=== PATIENT | female | born 1950 | race Caucasian/White ===

== ENCOUNTER 2017-11-23 10:12 | Emergency (ER) | payer OTHER ==
[~2017-11-23] VITALS: Ht 152.4 cm; Wt 71.7 kg
[~2017-11-23 10:12] MED LIST: CARVEDILOL6.25 MG PO; CIPRO250 MG PO; CIPROFLOXACIN500 MG PO; FLUCONAZOLE100 MG PO; GABAPENTIN TAB600 MG PO; HUMALOG100 U/ML SC; HYDROCHLOROTH12.5 MG PO; HYZAAR; LANTUS100 U/ML; LANTUS100 U/ML SC; LISINOPRIL20 MG PO; LOMOTIL 0.025 M1 TA1 PO; LORATADINE10 M1 PO; LYRICA75 MG PO; MEDROL DOSEPAK4 MG PO; METFORMIN HCL500 M1 PO; METRONIDAZOLE500 M1 PO; Nystatin Cream15 GM T; SIMVASTATIN80 MG PO; TRADJENTA5 MG PO; TYLENOL W/ CODE1 TAB PO; VITAMIN D2000 IU PO
[2017-11-23 10:41] LABS: BASO # 0.1 10*3/uL (0.0-0.1); BASO % 0.8 % (0.0-1.0); EOS # 0.3 10*3/uL (0.0-0.4); EOS % 4.5 % (1.0-4.0); HEMATOCRIT 42.7 % (37.0-47.0); HEMOGLOBIN 14.3 g/dl (12.0-16.0); LYMPH # 1.9 10*3/uL (1.3-4.4); LYMPH % 25.5 % (27.0-41.0); MEAN CELL VOLUME 90.7 fl (81.0-99.0); MEAN CORPUSCULAR HGB 30.4 pg (27.0-31.0); MEAN CORPUSCULAR HGB CONC 33.5 g/dl (33.0-37.0); MEAN PLATELET VOLUME 10.6 fl (9.6-12.3); MONO # 0.9 10*3/uL (0.1-1.0); MONO % 12.3 % (3.0-9.0); NEUT # 4.2 10*3/uL (2.3-7.9); NEUT % 56.8 % (47.0-73.0); PLATELET COUNT AUTOMATED 249 10*3/uL (130-400); RED BLOOD COUNT 4.71 10*6/uL (4.10-5.10); RED CELL DISTRI WIDTH 12.6 % (0-14.5); WHITE BLOOD COUNT 7.5 10*3/uL (4.8-10.8)
[2017-11-23 10:57] LABS: ALKALINE PHOSPHATASE 87 U/L (45-117); BUN 15 mg/dl (7-24); CHLORIDE 103 mmol/L (98-107); CREATININE 1.05 mg/dL (0.55-1.02); SGOT/AST 13 IU/L (3-35); SGPT/ALT 15 U/L (12-78); SODIUM 137 mmol/L (136-145); TOTAL PROTEIN 7.6 gm/dL (6.4-8.2)
[2017-11-23] MEDS ORDERED: VIBRAMYCIN100 MG PO (11:29)
[2017-11-23] MEDS ORDERED: TESSALON PERLE100 M1 PO (11:29)
[2017-11-23] MEDS ORDERED: ZITHROMAX250 MG PO (11:53)
== END 2017-11-23 11:34 | disposition home or self-care (01) ==
LOC: ED 10:12
PROVIDERS: Emergency Medicine
DX: J40 Bronchitis, not specified as acute or chronic (principal); E11.9 Type 2 diabetes mellitus without complications; I10 Essential (primary) hypertension; Z79.899 Other long term (current) drug therapy; Z91.040 Latex allergy status; Z88.3 Allergy status to other anti-infective agents; Z79.4 Long term (current) use of insulin

== ENCOUNTER 2017-12-03 16:13 | Emergency (ER) | payer OTHER ==
[~2017-12-03] VITALS: Ht 152.4 cm; Wt 70.8 kg
[~2017-12-03 16:13] MED LIST changes: +TESSALON PERLE100 M1 PO; +VIBRAMYCIN100 MG PO; +ZITHROMAX250 MG PO
[2017-12-03 17:15] LABS: BASO % 0.5 % (0.0-1.0); EOS # 0.2 10*3/uL (0.0-0.4); EOS % 2.4 % (1.0-4.0); HEMATOCRIT 41.2 % (37.0-47.0); HEMOGLOBIN 13.4 g/dl (12.0-16.0); LYMPH # 2.3 10*3/uL (1.3-4.4); LYMPH % 29.8 % (27.0-41.0); MEAN CELL VOLUME 90.7 fl (81.0-99.0); MEAN CORPUSCULAR HGB 29.5 pg (27.0-31.0); MEAN CORPUSCULAR HGB CONC 32.5 g/dl (33.0-37.0); MEAN PLATELET VOLUME 10.4 fl (9.6-12.3); MONO # 0.5 10*3/uL (0.1-1.0); MONO % 6.1 % (3.0-9.0); NEUT # 4.6 10*3/uL (2.3-7.9); NEUT % 61.1 % (47.0-73.0); PLATELET COUNT AUTOMATED 328 10*3/uL (130-400); RED BLOOD COUNT 4.54 10*6/uL (4.10-5.10); RED CELL DISTRI WIDTH 12.6 % (0-14.5); WHITE BLOOD COUNT 7.6 10*3/uL (4.8-10.8)
[2017-12-03 17:29] LABS: ALKALINE PHOSPHATASE 72 U/L (45-117); BUN 14 mg/dl (7-24); CHLORIDE 103 mmol/L (98-107); CREATININE 1.05 mg/dL (0.55-1.02); POTASSIUM 4.2 mmol/L (3.5-5.1); SGOT/AST 13 IU/L (3-35); SGPT/ALT 15 U/L (12-78); SODIUM 138 mmol/L (136-145); TOTAL PROTEIN 7.5 gm/dL (6.4-8.2)
[2017-12-03] MEDS ORDERED: PREDNISONE20 M1 PO (18:29)
[2017-12-03] MEDS ORDERED: LEVAQUIN750 M1 PO (18:29)
== END 2017-12-03 18:50 | disposition home or self-care (01) ==
LOC: ED 16:13
PROVIDERS: Nurse Practitioner
DX: J40 Bronchitis, not specified as acute or chronic (principal); E11.9 Type 2 diabetes mellitus without complications; Z91.040 Latex allergy status; Z88.3 Allergy status to other anti-infective agents; Z79.899 Other long term (current) drug therapy; Z79.4 Long term (current) use of insulin

== ENCOUNTER 2017-12-25 16:24 | Emergency (ER) | payer OTHER ==
[~2017-12-25] VITALS: Ht 152.4 cm; Wt 68.0 kg
[~2017-12-25 16:24] MED LIST changes: +LEVAQUIN750 M1 PO; +PREDNISONE20 M1 PO
== END 2017-12-25 19:25 | disposition home or self-care (01) ==
LOC: ED 16:24
DX: S00.03XA Contusion of scalp, initial encounter (principal); E11.9 Type 2 diabetes mellitus without complications; I10 Essential (primary) hypertension; Z88.1 Allergy status to other antibiotic agents; Z91.040 Latex allergy status; W22.8XXA Striking against or struck by other objects, initial encounter; Y93.89 Activity, other specified; Y92.89 Other specified places as the place of occurrence of the external cause; Y99.8 Other external cause status

== ENCOUNTER 2018-01-30 15:08 | Emergency (ER) | payer MEDICARE ==
[~2018-01-30] VITALS: Ht 152.4 cm; Wt 74.8 kg
[2018-01-30] MEDS ORDERED: TRESIBA FL200 UNIT/1 SQ (15:16)
[2018-01-30] MEDS ORDERED: DICLOFENAC SOD100 G1 T (15:16)
[2018-01-30] MEDS ORDERED: TYLENOL W/CODEI1 TA4 PO (17:43)
[2018-01-30] MEDS ORDERED: Motrin,Rufen800 MG PO (17:43)
== END 2018-01-30 17:55 | disposition home or self-care (01) ==
LOC: ED 15:08
DX: S22.42XA Multiple fractures of ribs, left side, initial encounter for closed fracture (principal); I10 Essential (primary) hypertension; E11.40 Type 2 diabetes mellitus with diabetic neuropathy, unspecified; Z88.1 Allergy status to other antibiotic agents; Z91.040 Latex allergy status; Z79.899 Other long term (current) drug therapy; Z79.4 Long term (current) use of insulin; W18.30XA Fall on same level, unspecified, initial encounter; Y93.89 Activity, other specified; Y92.89 Other specified places as the place of occurrence of the external cause; Y99.8 Other external cause status

== ENCOUNTER → 2018-02-27 | Outpatient (CLI) | payer MEDICARE ==
[~2018-02-27] MED LIST changes: +DICLOFENAC SOD100 G1 T; +Motrin,Rufen800 MG PO; +TRESIBA FL200 UNIT/1 SQ; +TYLENOL W/CODEI1 TA4 PO
[2018-02-27 11:53] LABS: BASO # 0.1 10*3/uL (0.0-0.1); BASO % 0.9 % (0.0-1.0); EOS # 0.3 10*3/uL (0.0-0.4); EOS % 3.8 % (1.0-4.0); HEMATOCRIT 43.7 % (37.0-47.0); HEMOGLOBIN 14.4 g/dl (12.0-16.0); LYMPH # 2.1 10*3/uL (1.3-4.4); LYMPH % 30.2 % (27.0-41.0); MEAN PLATELET VOLUME 10.5 fl (9.6-12.3); MONO # 0.5 10*3/uL (0.1-1.0); MONO % 7.1 % (3.0-9.0); NEUT % 57.7 % (47.0-73.0); PLATELET COUNT AUTOMATED 325 10*3/uL (130-400); RED CELL DISTRI WIDTH 12.6 % (0-14.5); WHITE BLOOD COUNT 6.9 10*3/uL (4.8-10.8)
[2018-02-27 12:23] LABS: ALBUMIN 3.3 gm/dl (3.1-4.5); CREATININE 1.1 mg/dL (0.55-1.02); POTASSIUM 4.2 mmol/L (3.5-5.1); TOTAL PROTEIN 7.8 gm/dL (6.4-8.2)
[2018-02-27 12:30] LABS: THYROID STIM HORMONE (HS) 1.28 uIU/ml (0.358-4.75)
[2018-02-27 16:32] LABS: BILIRUBIN NEGATIVE (NEGATIVE); BLOOD TRACE-LYSED (NEGATIVE); CLARITY CLEAR (CLEAR); COLOR YELLOW (YELLOW); GLUCOSE 3+ (NEGATIVE); KETONE NEGATIVE (NEGATIVE); LEUKO ESTERASE NEGATIVE (NEGATIVE); NITRITE NEGATIVE (NEGATIVE); PH 5.5 (5.0-9.0); UROBILINOGEN 0.2 E.U./dl (0.2-1.0)
[2018-02-27 16:45] LABS: BACTERIA 2+
[2018-02-28 08:08] LABS: CREATININE,URINE 43.1 mg/dL (Not Estab.); MICRO ALBUMIN/CRE RATIO 463.8 (0.0-30.0)
== END | disposition home or self-care (01) ==
LOC: LAB 11:20
PROVIDERS: Family Medicine
DX: I10 Essential (primary) hypertension (principal); E11.65 Type 2 diabetes mellitus with hyperglycemia; E78.5 Hyperlipidemia, unspecified; G58.9 Mononeuropathy, unspecified

== ENCOUNTER → 2018-04-22 | Outpatient (CLI) | payer MEDICARE ==
[~2018-04-22] MED LIST changes: +BISACODYL LAXATI5 MG PO; +ENOXAPARIN30 MG/0.2 SC; +GOOD SENSE400 MG/5 M PO; +Humalog SQ; +NATURE'S BLEND F1 MG PO; +TYLENOL WITH C1 EACH PO; +VITAMIN D-32000 UNIT PO
== END | disposition home or self-care (01) ==
LOC: ORTHO 04:36
DX: Z47.89 Encounter for other orthopedic aftercare (principal); S72.002D Fracture of unspecified part of neck of left femur, subsequent encounter for closed fracture with routine healing; X58.XXXD Exposure to other specified factors, subsequent encounter

== ENCOUNTER 2018-04-28 11:58 | Inpatient (IN) | payer MEDICARE ==
[~2018-04-28] VITALS: Ht 152.4 cm
--- NOTE | ~2018-04-28 | EKG ---
[place], [place] ELECTROCARDIOGRAM REPORT NAME: NATHEN BAILEY UNIT #: [id number] ROOM: 411 DOCTOR: LUPE DRAFT REPORT BIRTHDATE: [birth year] [facility] Test Date: 2018-04-28 Test Time: 12:59:57 Pat Name: NATHEN BAILEY Department: Room: 411 Gender: F Antenna Rigger: Trupti Hair : 1950 Requested By: МАРИНА PUTNAM DNP Order Number: [id number] Reading MD: Ben Keys MD Measurements Intervals [place] Rate: 108 P: 37 IN: 148 QRS: 0 QRSD: 75 T: 71 QT: 348 QTc: 467 Interpretive Statements Sinus tachycardia Ventricular premature complexes Abnormal R-wave progression, early transition Borderline repolarization abnormality Compared to ECG 03/24/2018 10:23:43 Ventricular premature complex(es) now present Sinus rhythm no longer present Myocardial infarct finding no longer present Electronically Signed On 04-28-2018 18:35:21 PDT by Ben Keys MD CM:EKGRPT:ELECTROCARDIOGRAM REPORT [id number] МАРИНА PUTNAM DNP EPIPHANY DRAFT REPORT МАРИНА PUTNAM DNP
[2018-04-28 11:58] VITALS: BP 162/80
[2018-04-28 13:16] LABS: BASO % 0.3 % (0.0-1.0); EOS # 0.1 10*3/uL (0.0-0.4); EOS % 0.4 % (1.0-4.0); HEMATOCRIT 42.7 % (37.0-47.0); HEMOGLOBIN 14.5 g/dl (12.0-16.0); LYMPH # 1.9 10*3/uL (1.3-4.4); LYMPH % 15.4 % (27.0-41.0); MEAN CELL VOLUME 91.4 fl (81.0-99.0); MEAN PLATELET VOLUME 10.5 fl (9.6-12.3); MONO # 0.6 10*3/uL (0.1-1.0); MONO % 4.5 % (3.0-9.0); NEUT # 9.7 10*3/uL (2.3-7.9); PLATELET COUNT AUTOMATED 379 10*3/uL (130-400); RED BLOOD COUNT 4.67 10*6/uL (4.10-5.10); RED CELL DISTRI WIDTH 12.8 % (0-14.5); WHITE BLOOD COUNT 12.3 10*3/uL (4.8-10.8)
[2018-04-28 13:33] LABS: SGOT/AST 21 IU/L (3-35)
[2018-04-28 13:35] LABS: ALBUMIN 3.5 gm/dl (3.1-4.5); ALKALINE PHOSPHATASE 149 U/L (45-117); BUN 24 mg/dl (7-24); CHLORIDE 103 mmol/L (98-107); CREATININE 0.86 mg/dL (0.55-1.02); LIPASE 148 U/L (73-393); POTASSIUM 3.3 mmol/L (3.5-5.1); SGPT/ALT 31 U/L (12-78); SODIUM 138 mmol/L (136-145); TOTAL PROTEIN 8.6 gm/dL (6.4-8.2)
[2018-04-28 13:36] LABS: TROPONIN I < 0.015 ng/ml (<0.045)
[2018-04-28 14:07] VITALS: BP 170/89
[2018-04-28 14:36] LABS: BILIRUBIN NEGATIVE (NEGATIVE); BLOOD 2+ (NEGATIVE); CLARITY SL CLOUDY (CLEAR); COLOR YELLOW (YELLOW); GLUCOSE 2+ (NEGATIVE); KETONE 3+ (NEGATIVE); SPECIFIC GRAVITY 1.025 (1.005-1.030)
[2018-04-28 14:37] LABS: LEUKO ESTERASE NEGATIVE (NEGATIVE); NITRITE NEGATIVE (NEGATIVE); UROBILINOGEN 0.2 E.U./dl (0.2-1.0)
[2018-04-28 14:39] LABS: BACTERIA 4+
[2018-04-28 14:40] LABS: RBC 51-100 rbc/hpf (0-2)
[2018-04-28 15:33] VITALS: BP 169/89
[2018-04-28 16:22] VITALS: BP 188/102
[2018-04-28 20:00] VITALS: BP 172/70
[2018-04-28 22:04] VITALS: BP 142/62
[2018-04-29] VITALS: BP 96/54
[2018-04-29 05:59] LABS: ALBUMIN 2.6 gm/dl (3.1-4.5); ALKALINE PHOSPHATASE 110 U/L (45-117); BUN 20 mg/dl (7-24); CHLORIDE 112 mmol/L (98-107); CREATININE 0.74 mg/dL (0.55-1.02); PHOSPHOROUS 2.9 mg/dL (2.5-4.9); POTASSIUM 3.6 mmol/L (3.5-5.1); SGOT/AST 14 IU/L (3-35); SGPT/ALT 22 U/L (12-78); SODIUM 146 mmol/L (136-145); TOTAL PROTEIN 6.7 gm/dL (6.4-8.2)
[2018-04-29 06:00] LABS: BASO # 0.1 10*3/uL (0.0-0.1); BASO % 0.5 % (0.0-1.0); EOS # 0.3 10*3/uL (0.0-0.4); EOS % 2.6 % (1.0-4.0); HEMATOCRIT 36.9 % (37.0-47.0); LYMPH # 2.8 10*3/uL (1.3-4.4); LYMPH % 23.2 % (27.0-41.0); MEAN CELL VOLUME 91.6 fl (81.0-99.0); MEAN CORPUSCULAR HGB 30.5 pg (27.0-31.0); MEAN CORPUSCULAR HGB CONC 33.3 g/dl (33.0-37.0); MEAN PLATELET VOLUME 10.9 fl (9.6-12.3); MONO # 1.1 10*3/uL (0.1-1.0); MONO % 9.3 % (3.0-9.0); NEUT # 7.8 10*3/uL (2.3-7.9); NEUT % 64.2 % (47.0-73.0); PLATELET COUNT AUTOMATED 311 10*3/uL (130-400); RED BLOOD COUNT 4.03 10*6/uL (4.10-5.10); RED CELL DISTRI WIDTH 12.9 % (0-14.5); WHITE BLOOD COUNT 12.2 10*3/uL (4.8-10.8)
[2018-04-29 06:05] LABS: HEMOGLOBIN 12.3 g/dl (12.0-16.0)
[2018-04-29 08:00] VITALS: BP 144/76
[2018-04-29 12:00] VITALS: BP 133/63
[2018-04-29 16:00] VITALS: BP 129/45
[2018-04-29 20:00] VITALS: BP 127/46
[2018-04-30] VITALS: BP 110/54
[2018-04-30 08:00] VITALS: BP 142/72
[2018-04-30 12:00] VITALS: BP 128/60
[2018-04-30] MEDS ORDERED: CIPRO250 MG PO (13:49)
[2018-04-30 16:00] VITALS: BP 160/74
== END 2018-04-30 16:30 | disposition home health service (06) | DRG 638 ==
LOC: ED 11:58 → EDHOLD 15:08 → 4E 15:08
PROVIDERS: Nurse Practitioner Family; Registered Nurse
DX: E11.65 Type 2 diabetes mellitus with hyperglycemia (principal); E44.0 Moderate protein-calorie malnutrition; E87.6 Hypokalemia; E83.41 Hypermagnesemia; E11.22 Type 2 diabetes mellitus with diabetic chronic kidney disease; N18.9 Chronic kidney disease, unspecified; E11.40 Type 2 diabetes mellitus with diabetic neuropathy, unspecified; Z91.81 History of falling; Z87.81 Personal history of (healed) traumatic fracture; Z79.4 Long term (current) use of insulin; Z98.891 History of uterine scar from previous surgery; Z86.73 Personal history of transient ischemic attack (TIA), and cerebral infarction without residual deficits; Z90.710 Acquired absence of both cervix and uterus; Z79.899 Other long term (current) drug therapy; Z88.8 Allergy status to other drugs, medicaments and biological substances; Z91.040 Latex allergy status; Z91.010 Allergy to peanuts

== ENCOUNTER → 2018-06-01 | Outpatient (CLI) | payer MEDICARE | END | disposition home or self-care (01) | LOC: ORTHO 01:58 → LAB 01:58 → ORTHO 16:53 | DX: S72.142A Displaced intertrochanteric fracture of left femur, initial encounter for closed fracture (principal); E55.9 Vitamin D deficiency, unspecified; M21.922 Unspecified acquired deformity of left upper arm; M16.12 Unilateral primary osteoarthritis, left hip; M85.88 Other specified disorders of bone density and structure, other site; M17.12 Unilateral primary osteoarthritis, left knee; Z98.890 Other specified postprocedural states; X58.XXXA Exposure to other specified factors, initial encounter; Y93.89 Activity, other specified; Y92.89 Other specified places as the place of occurrence of the external cause; Y99.8 Other external cause status ==

== ENCOUNTER 2018-09-17 16:15 | Emergency (ER) | payer MEDICARE ==
[~2018-09-17] VITALS: Ht 154.9 cm; Wt 68.0 kg
[2018-09-17] MEDS ORDERED: PREDNISONE50 MG PO (17:51)
[2018-09-17] MEDS ORDERED: ZITHROMAX250 MG PO (17:51)
== END 2018-09-17 17:57 | disposition home or self-care (01) ==
LOC: ED 16:15
DX: J20.9 Acute bronchitis, unspecified (principal); J44.9 Chronic obstructive pulmonary disease, unspecified; Z91.010 Allergy to peanuts; Z91.040 Latex allergy status; Z88.1 Allergy status to other antibiotic agents

== ENCOUNTER → 2018-10-14 | Outpatient (CLI) | payer MEDICARE ==
[~2018-10-14] MED LIST changes: +PREDNISONE50 MG PO
== END | disposition home or self-care (01) ==
LOC: ORTHO 01:32
DX: M17.12 Unilateral primary osteoarthritis, left knee (principal); S72.142D Displaced intertrochanteric fracture of left femur, subsequent encounter for closed fracture with routine healing; Z91.81 History of falling; X58.XXXD Exposure to other specified factors, subsequent encounter

== ENCOUNTER 2019-07-25 18:34 | Emergency (ER) | payer MEDICARE | END 2019-07-26 00:05 | disposition home or self-care (01) | LOC: ED 18:34 | DX: S62.647A Nondisplaced fracture of proximal phalanx of left little finger, initial encounter for closed fracture (principal); E11.9 Type 2 diabetes mellitus without complications; I25.2 Old myocardial infarction; E11.40 Type 2 diabetes mellitus with diabetic neuropathy, unspecified; I10 Essential (primary) hypertension; Z88.1 Allergy status to other antibiotic agents; Z91.040 Latex allergy status; Z91.010 Allergy to peanuts; Z79.899 Other long term (current) drug therapy; Z79.4 Long term (current) use of insulin; Z86.718 Personal history of other venous thrombosis and embolism; Z86.73 Personal history of transient ischemic attack (TIA), and cerebral infarction without residual deficits; W19.XXXA Unspecified fall, initial encounter; Y93.89 Activity, other specified; Y92.098 Other place in other non-institutional residence as the place of occurrence of the external cause; Y99.8 Other external cause status ==

== ENCOUNTER 2019-07-28 14:09 | Emergency (ER) | payer MEDICARE ==
[~2019-07-28] VITALS: Ht 162.5 cm; Wt 54.4 kg
[2019-07-28 14:55] LABS: BASO # 0.1 10*3/uL (0.0-0.1); BASO % 0.4 % (0.0-1.0); EOS # 0.2 10*3/uL (0.0-0.4); HEMATOCRIT 37.1 % (37.0-47.0); HEMOGLOBIN 12.3 g/dl (12.0-16.0); LYMPH # 2.2 10*3/uL (1.3-4.4); LYMPH % 18.7 % (27.0-41.0); MEAN CELL VOLUME 92.5 fl (81.0-99.0); MEAN CORPUSCULAR HGB 30.7 pg (27.0-31.0); MEAN CORPUSCULAR HGB CONC 33.2 g/dl (33.0-37.0); MEAN PLATELET VOLUME 10.6 fl (9.6-12.3); MONO # 1.1 10*3/uL (0.1-1.0); MONO % 9.2 % (3.0-9.0); NEUT % 69.4 % (47.0-73.0); PLATELET COUNT AUTOMATED 258 10*3/uL (130-400); RED BLOOD COUNT 4.01 10*6/uL (4.10-5.10); RED CELL DISTRI WIDTH 12.1 % (0-14.5); WHITE BLOOD COUNT 11.5 10*3/uL (4.8-10.8)
[2019-07-28 15:05] LABS: INTERNATIONAL NORM RATIO 0.9 (2.0-3.5)
[2019-07-28 15:12] LABS: ALBUMIN 2.6 gm/dl (3.1-4.5); ALKALINE PHOSPHATASE 96 U/L (45-117); BUN 27 mg/dl (7-24); CHLORIDE 99 mmol/L (98-107); CREATININE 1.46 mg/dL (0.55-1.02); LIPASE 82 U/L (73-393); POTASSIUM 3.4 mmol/L (3.5-5.1); SGOT/AST 33 IU/L (3-35); SGPT/ALT 16 U/L (12-78); SODIUM 132 mmol/L (136-145); TOTAL PROTEIN 6.9 gm/dL (6.4-8.2)
[2019-07-28 15:13] LABS: TROPONIN I < 0.015 ng/ml (<0.045)
== END 2019-07-28 16:09 | disposition short-term general hospital (02) ==
LOC: ED 14:09
PROVIDERS: Physician Assistant
DX: I63.9 Cerebral infarction, unspecified (principal); E11.9 Type 2 diabetes mellitus without complications; I10 Essential (primary) hypertension; I25.2 Old myocardial infarction; Z91.010 Allergy to peanuts; Z91.040 Latex allergy status; Z88.1 Allergy status to other antibiotic agents; Z79.4 Long term (current) use of insulin; Z86.73 Personal history of transient ischemic attack (TIA), and cerebral infarction without residual deficits

== ENCOUNTER 2021-03-01 17:38 | Inpatient (IN) | payer MEDICARE ==
[~2021-03-01] VITALS: Ht 152.4 cm; Wt 67.6 kg
[2021-03-01 17:44] VITALS: BP 172/83
[2021-03-01 18:12] LABS: BASO % 0.4 % (0.0-1.0); EOS # 0.1 10*3/uL (0.0-0.4); EOS % 0.6 % (1.0-4.0); HEMATOCRIT 36.5 % (37.0-47.0); LYMPH # 1.5 10*3/uL (1.3-4.4); LYMPH % 12.9 % (27.0-41.0); MEAN CELL VOLUME 94.6 fl (81.0-99.0); MEAN CORPUSCULAR HGB 31.1 pg (27.0-31.0); MEAN CORPUSCULAR HGB CONC 32.9 g/dl (33.0-37.0); MEAN PLATELET VOLUME 9.9 fl (9.6-12.3); MONO # 0.9 10*3/uL (0.1-1.0); MONO % 7.4 % (3.0-9.0); NEUT # 8.9 10*3/uL (2.3-7.9); NEUT % 78.3 % (47.0-73.0); PLATELET COUNT AUTOMATED 311 10*3/uL (130-400); RED BLOOD COUNT 3.86 10*6/uL (4.10-5.10); RED CELL DISTRI WIDTH 13.9 % (0-14.5); WHITE BLOOD COUNT 11.4 10*3/uL (4.8-10.8)
[2021-03-01 18:25] LABS: INTERNATIONAL NORM RATIO 2.2 (2.0-3.5)
[2021-03-01 18:35] LABS: ALBUMIN 3.2 gm/dl (3.1-4.5); CREATININE 1.18 mg/dL (0.55-1.02); POTASSIUM 4.2 mmol/L (3.5-5.1); TOTAL PROTEIN 7.2 gm/dL (6.4-8.2)
[2021-03-01 18:48] VITALS: BP 155/81
[2021-03-01 21:21] VITALS: BP 167/88
[2021-03-01 22:02] VITALS: BP 186/84
[2021-03-01] MEDS ORDERED: NEURONTIN300 MG PO (23:08)
[2021-03-01] MEDS ORDERED: MIRTAZAPINE30 M2 PO (23:09)
[2021-03-01] MEDS ORDERED: METFORMIN XR500 MG PO (23:09)
[2021-03-01] MEDS ORDERED: JARDIANCE25 MG PO (23:10)
[2021-03-01 23:11] LABS: BILIRUBIN Negative (Negative); BLOOD 2+ (Negative); CLARITY Cloudy (Clear); COLOR Yellow (Yellow); GLUCOSE 3+ (Negative); KETONE Negative (Negative); LEUKO ESTERASE 1+ (Negative); NITRITE Negative (Negative); PH 5.5 (4.5-8.0)
[2021-03-01] MEDS ORDERED: WARFARIN SODIUM3 MG PO (23:12)
[2021-03-01] MEDS ORDERED: ATORVASTATIN CA20 M1 PO (23:13)
[2021-03-01] MEDS ORDERED: CARVEDILOL3.125 MG PO (23:13)
[2021-03-01] MEDS ORDERED: LISINOPRIL10 M1 PO (23:14)
[2021-03-01] MEDS ORDERED: ALENDRONATE SOD70 M1 PO (23:16)
[2021-03-02 00:30] VITALS: BP 155/78
[2021-03-02 00:33] LABS: WBC 31-40 wbc/hpf (0-5)
[2021-03-02 00:34] LABS: BACTERIA TRACE; RBC 16-20 rbc/hpf (0-2)
[2021-03-02 06:19] LABS: BASO % 0.4 % (0.0-1.0); EOS # 0.2 10*3/uL (0.0-0.4); EOS % 2.6 % (1.0-4.0); HEMATOCRIT 31.7 % (37.0-47.0); LYMPH # 2.3 10*3/uL (1.3-4.4); LYMPH % 28.9 % (27.0-41.0); MEAN CELL VOLUME 96.4 fl (81.0-99.0); MEAN CORPUSCULAR HGB 30.4 pg (27.0-31.0); MEAN CORPUSCULAR HGB CONC 31.5 g/dl (33.0-37.0); MEAN PLATELET VOLUME 10.2 fl (9.6-12.3); MONO # 0.9 10*3/uL (0.1-1.0); MONO % 11.3 % (3.0-9.0); NEUT # 4.4 10*3/uL (2.3-7.9); NEUT % 56.5 % (47.0-73.0); PLATELET COUNT AUTOMATED 257 10*3/uL (130-400); RED BLOOD COUNT 3.29 10*6/uL (4.10-5.10); WHITE BLOOD COUNT 7.8 10*3/uL (4.8-10.8)
[2021-03-02 06:38] LABS: ALBUMIN 2.7 gm/dl (3.1-4.5); BUN 15 mg/dl (7-24); CHLORIDE 112 mmol/L (98-107); POTASSIUM 3.6 mmol/L (3.5-5.1); SGOT/AST 17 IU/L (3-35); SGPT/ALT 18 U/L (12-78); SODIUM 142 mmol/L (136-145)
[2021-03-02 06:41] LABS: ALKALINE PHOSPHATASE 60 U/L (45-117); CREATININE 0.88 mg/dL (0.55-1.02); TOTAL PROTEIN 6.2 gm/dL (6.4-8.2)
[2021-03-02 16:00] VITALS: BP 120/59
[2021-03-02 20:00] VITALS: BP 108/53
[2021-03-03] VITALS: BP 124/56
[2021-03-03 06:00] LABS: BASO % 0.4 % (0.0-1.0); EOS # 0.4 10*3/uL (0.0-0.4); EOS % 4.1 % (1.0-4.0); HEMATOCRIT 30.9 % (37.0-47.0); LYMPH # 2.3 10*3/uL (1.3-4.4); LYMPH % 24.6 % (27.0-41.0); MEAN CELL VOLUME 96.6 fl (81.0-99.0); MEAN CORPUSCULAR HGB 31.3 pg (27.0-31.0); MEAN CORPUSCULAR HGB CONC 32.4 g/dl (33.0-37.0); MEAN PLATELET VOLUME 9.9 fl (9.6-12.3); MONO # 0.9 10*3/uL (0.1-1.0); MONO % 9.8 % (3.0-9.0); NEUT # 5.6 10*3/uL (2.3-7.9); NEUT % 60.9 % (47.0-73.0); PLATELET COUNT AUTOMATED 246 10*3/uL (130-400); RED CELL DISTRI WIDTH 14.1 % (0-14.5); WHITE BLOOD COUNT 9.2 10*3/uL (4.8-10.8)
[2021-03-03 06:16] LABS: INTERNATIONAL NORM RATIO 1.5 (2.0-3.5)
[2021-03-03 06:21] LABS: CHLORIDE 112 mmol/L (98-107); POTASSIUM 3.8 mmol/L (3.5-5.1); SODIUM 142 mmol/L (136-145)
[2021-03-03 06:25] LABS: BUN 15 mg/dl (7-24); CREATININE 0.79 mg/dL (0.55-1.02)
[2021-03-03 08:00] VITALS: BP 160/79
[2021-03-03 12:00] VITALS: BP 110/52
[2021-03-03 16:00] VITALS: BP 135/56
[2021-03-03 20:00] VITALS: BP 156/65
[2021-03-04] VITALS: BP 122/42
[2021-03-04 06:12] LABS: BASO # 0.1 10*3/uL (0.0-0.1); BASO % 0.6 % (0.0-1.0); EOS # 0.5 10*3/uL (0.0-0.4); EOS % 5.2 % (1.0-4.0); HEMATOCRIT 30.3 % (37.0-47.0); LYMPH # 2.8 10*3/uL (1.3-4.4); LYMPH % 31.6 % (27.0-41.0); MEAN CELL VOLUME 96.2 fl (81.0-99.0); MEAN CORPUSCULAR HGB 30.8 pg (27.0-31.0); MEAN PLATELET VOLUME 10.2 fl (9.6-12.3); MONO # 0.7 10*3/uL (0.1-1.0); MONO % 8.3 % (3.0-9.0); NEUT # 4.8 10*3/uL (2.3-7.9); NEUT % 54.1 % (47.0-73.0); PLATELET COUNT AUTOMATED 253 10*3/uL (130-400); RED BLOOD COUNT 3.15 10*6/uL (4.10-5.10); RED CELL DISTRI WIDTH 14.1 % (0-14.5); WHITE BLOOD COUNT 8.9 10*3/uL (4.8-10.8)
[2021-03-04 06:18] LABS: INTERNATIONAL NORM RATIO 1.5 (2.0-3.5)
[2021-03-04 08:00] VITALS: BP 139/88
[2021-03-04 12:00] VITALS: BP 141/69
[2021-03-04 16:00] VITALS: BP 155/56
[2021-03-04 20:00] VITALS: BP 141/51
[2021-03-04 23:44] VITALS: BP 162/78
[2021-03-05] VITALS: BP 162/78; BP 167/77
[2021-03-05 06:12] LABS: INTERNATIONAL NORM RATIO 1.6 (2.0-3.5)
[2021-03-05 08:00] VITALS: BP 168/80
[2021-03-05 12:00] VITALS: BP 154/79
[2021-03-05 16:29] VITALS: BP 156/68
[2021-03-05 20:00] VITALS: BP 151/72
[2021-03-06] VITALS: BP 136/56
[2021-03-06 06:18] LABS: INTERNATIONAL NORM RATIO 1.6 (2.0-3.5)
[2021-03-06 12:00] VITALS: BP 132/67
[2021-03-06 16:00] VITALS: BP 112/54
[2021-03-06 20:00] VITALS: BP 114/86
[2021-03-07] VITALS: BP 114/42
[2021-03-07 07:03] LABS: INTERNATIONAL NORM RATIO 1.8 (2.0-3.5)
[2021-03-07 08:00] VITALS: BP 114/60
[2021-03-07 12:00] VITALS: BP 120/58
[2021-03-07 16:00] VITALS: BP 138/76
[2021-03-07 20:00] VITALS: BP 123/57
[2021-03-08] VITALS: BP 125/58
[2021-03-08 07:32] LABS: INTERNATIONAL NORM RATIO 2.3 (2.0-3.5)
[2021-03-08 12:00] VITALS: BP 126/80
[2021-03-08 16:00] VITALS: BP 118/89
[2021-03-08 20:00] VITALS: BP 146/65
[2021-03-09] VITALS: BP 138/67
[2021-03-09 06:18] LABS: INTERNATIONAL NORM RATIO 2.3 (2.0-3.5)
[2021-03-09 08:00] VITALS: BP 178/83
[2021-03-09 12:00] VITALS: BP 163/81
[2021-03-09 16:00] VITALS: BP 184/75
[2021-03-09 20:00] VITALS: BP 153/79
[2021-03-10] VITALS: BP 137/62
[2021-03-10 06:36] LABS: INTERNATIONAL NORM RATIO 2.2 (2.0-3.5)
[2021-03-10 08:00] VITALS: BP 163/89
[2021-03-10 12:00] VITALS: BP 165/72
[2021-03-10 16:00] VITALS: BP 156/73
[2021-03-10 20:00] VITALS: BP 169/82
[2021-03-11] VITALS: BP 127/69
[2021-03-11 08:00] VITALS: BP 177/75
[2021-03-11 12:00] VITALS: BP 153/85
[2021-03-11 16:00] VITALS: BP 155/77
[2021-03-11 20:00] VITALS: BP 136/57
[2021-03-12] VITALS: BP 146/65
[2021-03-12 07:09] LABS: INTERNATIONAL NORM RATIO 2.8 (2.0-3.5)
[2021-03-12 08:00] VITALS: BP 141/72
[2021-03-12 12:00] VITALS: BP 130/80
[2021-03-12 16:00] VITALS: BP 149/63
[2021-03-12 20:00] VITALS: BP 124/77
[2021-03-13] VITALS: BP 127/60
[2021-03-13 06:47] LABS: INTERNATIONAL NORM RATIO 3.2 (2.0-3.5)
[2021-03-13 08:00] VITALS: BP 116/78
[2021-03-13 12:00] VITALS: BP 136/82
[2021-03-13] MEDS ORDERED: LISINOPRIL20 MG PO (12:52)
[2021-03-13] MEDS ORDERED: DICLOFENAC SOD100 G1 T (12:52)
[2021-03-13] MEDS ORDERED: Percocet 325 MG1 TAB PO (12:52)
[2021-03-13] MEDS ORDERED: WARFARIN SODIU2.5 MG PO (12:52)
[2021-03-13 16:00] VITALS: BP 150/60
== END 2021-03-13 17:14 | DRG 604 ==
LOC: ED 17:38 → 4E 20:15 → EDHOLD 20:15 → 4E 21:18
PROVIDERS: Internal Medicine; Registered Nurse; ADMIT Student in an Organized Health Care Education/Training Program; ATTEND Student in an Organized Health Care Education/Training Program
DX: S01.01XA Laceration without foreign body of scalp, initial encounter (principal); N17.0 Acute kidney failure with tubular necrosis; E87.2 Acidosis; E44.1 Mild protein-calorie malnutrition; W19.XXXA Unspecified fall, initial encounter; E11.65 Type 2 diabetes mellitus with hyperglycemia; Z20.822 Contact with and (suspected) exposure to COVID-19; N18.31 Chronic kidney disease, stage 3a; B96.20 Unspecified Escherichia coli [E. coli] as the cause of diseases classified elsewhere; E11.42 Type 2 diabetes mellitus with diabetic polyneuropathy; I12.9 Hypertensive chronic kidney disease with stage 1 through stage 4 chronic kidney disease, or unspecified chronic kidney disease; E11.22 Type 2 diabetes mellitus with diabetic chronic kidney disease; Z68.29 Body mass index [BMI] 29.0-29.9, adult; Z86.718 Personal history of other venous thrombosis and embolism; Z88.1 Allergy status to other antibiotic agents; Z91.040 Latex allergy status; Z91.010 Allergy to peanuts; Z79.899 Other long term (current) drug therapy; Z90.49 Acquired absence of other specified parts of digestive tract; Z90.710 Acquired absence of both cervix and uterus; Z98.891 History of uterine scar from previous surgery; Z79.01 Long term (current) use of anticoagulants; Y93.89 Activity, other specified; Y92.098 Other place in other non-institutional residence as the place of occurrence of the external cause; Y99.8 Other external cause status